=== PATIENT | male | born 1975 | race Caucasian/White ===

== ENCOUNTER 2021-09-13 19:10 | Emergency (ER) | payer MEDICAID ==
[~2021-09-13] VITALS: Ht 175.3 cm; Wt 105.0 kg
[2021-09-13 19:29] VITALS: BP 134/81
== END 2021-09-13 21:39 | disposition left against medical advice (07) ==
LOC: ER 19:12
DX: S61.215A Laceration without foreign body of left ring finger without damage to nail, initial encounter (principal); Z53.21 Procedure and treatment not carried out due to patient leaving prior to being seen by health care provider; X58.XXXA Exposure to other specified factors, initial encounter; Y93.9 Activity, unspecified; Y92.9 Unspecified place or not applicable; Y99.9 Unspecified external cause status

== ENCOUNTER 2022-06-03 03:13 | Emergency (ER) | payer MEDICAID ==
[~2022-06-03] VITALS: Ht 175.3 cm; Wt 110.0 kg
[2022-06-03 06:31] VITALS: BP 147/96
== END 2022-06-03 06:37 | disposition home or self-care (01) ==
LOC: ER 03:13
DX: F24 Shared psychotic disorder (principal); F17.200 Nicotine dependence, unspecified, uncomplicated; F32.A Depression, unspecified; F15.10 Other stimulant abuse, uncomplicated; Z88.8 Allergy status to other drugs, medicaments and biological substances
CPT/HCPCS: 99281

== ENCOUNTER 2024-04-05 01:02 | Emergency (ER) | payer MEDICAID ==
[~2024-04-05] VITALS: Ht 175.3 cm; Wt 147.7 kg
[2024-04-05] MEDS: bacitracin 15gm ointment TP ONE (02:46)
[2024-04-05 02:47] VITALS: BP 114/64; PULSE 72; RESP 18; TEMP 98.4; O2SAT 93
== END 2024-04-05 02:48 ==
LOC: ER 01:02
DX: S01.01XA Laceration without foreign body of scalp, initial encounter (principal); F32.A Depression, unspecified; F10.90 Alcohol use, unspecified, uncomplicated; F12.90 Cannabis use, unspecified, uncomplicated; Z88.8 Allergy status to other drugs, medicaments and biological substances; X58.XXXA Exposure to other specified factors, initial encounter; Y93.89 Activity, other specified; Y92.89 Other specified places as the place of occurrence of the external cause; Y99.8 Other external cause status
CPT/HCPCS: 70450; 99284